=== PATIENT | female | born 1965 | race Caucasian/White ===

== ENCOUNTER 2016-11-11 10:12 | Emergency (ER) | payer MEDICAID ==
[~2016-11-11] VITALS: Wt 95.0 kg
[~2016-11-11 10:12] MED LIST: CEPH-443 PO; IBUP-1542 PO; NAPR-260 PO
[2016-11-11] MEDS ORDERED: IBUP-1542 PO (11:22)
[2016-11-11] MEDS ORDERED: IBUPROFEN 800 MG TAB PO ONE (11:30)
--- NOTE | 2016-11-11 14:54 | ERD ---
ER Documentation Chief Complaint Date/Time DATE: 11/11/16 TIME: 14:53 Chief Complaint low back pain sudden onset non traumatic per pt HPI Patient is a 51-year-old female with hypertension and high cholesterol who presents with back pain. She was lifting something heavy this morning and she had acute onset of back pain. It is in the lower back bilaterally. She had no incontinence. She had no fevers. She has had no treatment as of yet. Upon review of old medical records this is the patient's sixth visit to the ER since September 2015. She does not know the name of her primary doctor. ROS All systems reviewed and are negative except as per history of present illness. Medications Home Meds Active Scripts Ibuprofen* (Motrin*) 600 Mg Tab, 600 MG PO Q6H Y for PAIN AND OR ELEVATED TEMP, #30 TAB Prov:COSTA ENCIOS MD 11/11/16 Cephalexin* (Keflex*) 500 Mg Capsule, 500 MG PO QID for 7 Days, CAP Prov:SHELLIE PARSONS PA-C 05/19/16 Naproxen* (Naprosyn*) 500 Mg Tablet, 500 MG PO BID Y for PAIN AND/OR INFLAMMATION, #30 TAB Prov:MADELIN RODAS PA-C 12/16/15 Ibuprofen* (Motrin*) 600 Mg Tab, 600 MG PO BID for PAIN, #30 TAB 0 Refills Prov:DONALD WYMAN PA-C 10/04/15 Allergies Allergies: Coded Allergies: No Known Allergy (Unverified , 10/04/15) PMhx/Soc Hx Cardiac Disorders: Yes (HTN, HYPERLIPDEMIA ) Hx Miscellaneous Medical Probl: Yes (HYPERTHYROID , ) Hx Alcohol Use: No Hx Substance Use: No Hx Tobacco Use: No FmHx Family History: No diabetes Physical Exam Vitals Vital Signs Date Time Temp Pulse Resp B/P Pulse Ox O2 Delivery O2 Flow Rate FiO2 11/11/16 10:21 98.4 72 20 140/82 98 Physical Exam Const: No acute distress Head: Atraumatic Eyes: Normal Conjunctiva ENT: Normal External Ears, Nose and Mouth. Neck: Full range of motion..~ No meningismus. Resp: Clear to auscultation bilaterally Cardio: Regular rate and rhythm, no murmurs Abd: Soft, non tender, non distended. Normal bowel sounds Skin: No petechiae or rashes Back: No midline or flank tenderness, lower back pain bilateral Ext: No cyanosis, or edema Neur: Awake and alert, strength intact, gait normal Psych: Normal Mood and Affect Results 24 hrs Current Medications Medications (Trade) Dose Ordered Sig/Rickey Route PRN Reason Start Time Stop Time Status Last Admin Dose Admin Ibuprofen (Motrin) 800 mg ONCE ONCE PO 11/11/16 11:30 11/11/16 11:31 DC 11/11/16 11:23 Procedures/MDM Patient is a 51-year-old female with hypertension who presents with lower back pain bilaterally. The patient was given ibuprofen for pain. At this point I doubt epidural abscess, epidural hematoma, or cauda equina syndrome. I believe outpatient management is appropriate. The patient will need to follow-up closely with the primary doctor within 24-48 hours for reevaluation. I do not believe she requires imaging studies at this time. Departure Diagnosis: Primary Impression: Back pain Condition: Fair Patient Instructions: Back Pain (Acute Or Chronic) Referrals: Your doctor Additional Instructions: Llame al doctor MAGAL y arjun snehal JANICE PARA DENTRO DE 1-2 MITCHELL.Dgale a la secretaria que nosotros le instruimos hacer esta janice.Avise o llame si lewis condicin se empeora antes de la janice. Regresa aqui si peor o no mejor. COSTA ENCISO MD Nov 11, 2016 14:54
== END 2016-11-11 11:34 | disposition home or self-care (01) ==
LOC: FTE 10:12
DX: S39.92XA Unspecified injury of lower back, initial encounter (principal); I10 Essential (primary) hypertension; X50.0XXA Overexertion from strenuous movement or load, initial encounter; Y92.9 Unspecified place or not applicable
CPT/HCPCS: Z7502; Z7610; 99283

== ENCOUNTER 2017-02-13 14:58 | Emergency (ER) | payer MEDICAID ==
[~2017-02-13] VITALS: Ht 165.1 cm; Wt 80.5 kg
[2017-02-13 15:17] VITALS: Ht 165.1 cm; Wt 80.5 kg
[2017-02-13] MEDS ORDERED: KETOROLAC 60 MG INJ IM STA (16:26)
--- NOTE | 2017-02-13 17:19 | ERD ---
ER Documentation Chief Complaint Date/Time DATE: 02/13/17 TIME: 17:15 Chief Complaint SHOULDER PAIN TO NECK SINCE YESTERDAY WORSE TODAY. HPI 51-year-old female patient with a past medical history of hypertension, hyperlipidemia, hypothyroidism, anemia presents to the ED complaining of right shoulder, right upper chest and neck pain and she was trying to bring down a 40 pound pot on the shelf in the kitchen. States that she heard a pop in her right shoulder 1 week ago but started to experience pain yesterday. States that she has been taking Motrin without relief of her symptoms. Denies any fever, chills, loss of sensation, loss of range of motion, abdominal pain, nausea, vomiting. ROS All systems reviewed and are negative except as per history of present illness. Medications Home Meds Active Scripts Ibuprofen* (Motrin*) 600 Mg Tab, 600 MG PO Q6, #30 TAB Prov:TIFFANY CHIANG PA-C 02/13/17 Ibuprofen* (Motrin*) 600 Mg Tab, 600 MG PO Q6H Y for PAIN AND OR ELEVATED TEMP, #30 TAB Prov:COSTA ENCISO MD 11/11/16 Cephalexin* (Keflex*) 500 Mg Capsule, 500 MG PO QID for 7 Days, CAP Prov:SHELLIE PARSONS PA-C 05/19/16 Naproxen* (Naprosyn*) 500 Mg Tablet, 500 MG PO BID Y for PAIN AND/OR INFLAMMATION, #30 TAB Prov:MADELIN RODAS PA-C 12/16/15 Ibuprofen* (Motrin*) 600 Mg Tab, 600 MG PO BID for PAIN, #30 TAB 0 Refills Prov:DONALD WYMAN PA-C 10/04/15 Allergies Allergies: Coded Allergies: No Known Allergy (Unverified , 02/13/17) PMhx/Soc Anesthesia Reaction: No Hx Neurological Disorder: No Hx Respiratory Disorders: No Hx Cardiac Disorders: Yes (HTN, HYPERLIPDEMIA) Hx Psychiatric Problems: No Hx Miscellaneous Medical Probl: Yes (HYPERTHYROID , ) Hx Alcohol Use: No Hx Substance Use: No Hx Tobacco Use: No Physical Exam Vitals Vital Signs Date Time Temp Pulse Resp B/P Pulse Ox O2 Delivery O2 Flow Rate FiO2 02/13/17 18:54 97.9 85 18 142/75 100 Room Air 02/13/17 15:17 97.7 82 18 139/73 100 Physical Exam Const: [id number], well-nourished. In no acute distress. Head: Atraumatic, normocephalic Eyes: Normal Conjunctiva without injection ENT: Normal external ear, nose and mouth. Neck: Slight cervical midline tenderness. Full range of motion. No meningismus. Resp: Clear to auscultation bilaterally. No wheezing, rhonchi, rales, or crackles. No accessory muscle use. No retractions. Cardio: Regular rate and rhythm, no murmurs Chest: Tenderness to palpation of upper right chest region near shoulder. Pain is reproducible. Skin: No petechiae or rashes Back: No midline tenderness. No CVA tenderness. Ext: No cyanosis, or edema. Cap refill less than 2 seconds. Distal pulses intact bilaterally. Tenderness to palpation of the right anterior humerus. Full range of motion of the bilateral shoulders, elbows, wrists and hands. Full range of motion of bilateral shoulders with internal rotation, external rotation, flexion, extension. No erythema, edema, warmth to touch. Neur: Awake and alert. Normal gait and coordination. Muscle strength 5/5. Sensation intact bilaterally. Psych: Normal Mood and Affect Results 24 hrs Current Medications Medications (Trade) Dose Ordered Sig/Rickey Route PRN Reason Start Time Stop Time Status Last Admin Dose Admin Ketorolac Tromethamine (Toradol) 60 mg ONCE STAT IM 02/13/17 16:26 02/13/17 16:29 DC 02/13/17 16:35 Procedures/MDM This is a 51-year-old female patient with no significant past medical history presents to the ED complaining of right shoulder, neck, upper right chest pain that started yesterday due to heavy lifting 1 week ago. Patient is afebrile and nontoxic-appearing. Patient has normal vital signs. A right shoulder, chest x-ray, neck x-ray was ordered to further evaluate patient. Patient was treated here in the ED with 60 mg IM Toradol with improvement of her pain. PROCEDURE: XR Cervical Spine. CLINICAL INDICATION: Neck pain TECHNIQUE: AP, cross-table lateral, and odontoid views of the cervical spine were obtained. COMPARISON: None available FINDINGS: The examination is limited the lateral exposure visualizes the vertebral bodies only to the mid C6 level. Mineralization is within normal limits. No fracture or osseous lesion is identified. Vertebral bodies are normal in height. Cervical lordosis is straightened. No vertebral subluxation is seen. Intervertebral discs are normal in height. Facet joints appear maintained. Prevertebral soft tissues, predental space and atlantoaxial joint are unremarkable. RPTAT:HJJR IMPRESSION: 1. Limited cross-table lateral view visualizing the vertebral bodies only to the mid C6 level. 2. Straightening of the normal lordosis may be from positioning but cannot exclude muscle spasm. 3. No obvious fracture subluxation is demonstrated. PROCEDURE: XR Chest. CLINICAL INDICATION: Chest pain. TECHNIQUE: Portable AP view of the chest was obtained. COMPARISON: None. FINDINGS: The cardiomediastinal silhouette is within normal limits. The lungs are clear. There is no evidence for pleural effusion, pneumothorax or pulmonary vascular congestion. The osseous structures are intact with no evidence for acute abnormality. RPTAT:HJJR IMPRESSION: No evidence for acute intrathoracic pathology. PROCEDURE: XR shoulder. CLINICAL INDICATION: Pain TECHNIQUE: Three views of the right shoulder were performed. COMPARISON: None available. FINDINGS: There is normal mineralization and alignment. No fracture or osseous lesion is identified. The joint spaces are preserved. The soft tissues are unremarkable. RPTAT:HJJR IMPRESSION: Unremarkable right shoulder series. Patient is neurovascularly intact. Patient's extremity symptoms have stabilized while they have been evaluated in the department and are appropriate for outpatient follow up. No evidence of fractures, dislocations, compartment syndrome, neurologic injury, vascular injury, open joint, open fracture, tendon laceration, septic arthritis, osteomyelitis, DVT, foreign body, or other emergent conditions. Discharge medications: Ibuprofen Follow up with primary care physician in 1-2 days. Instructed patient to return to the ED sooner for any worsening symptoms. Patient's questions were answered. Patient understood and agreed with discharge plan. Patient discharged stable. Departure Diagnosis: Primary Impression: Shoulder pain Laterality: right Chronicity: unspecified Qualified Code: M25.511 - Right shoulder pain, unspecified chronicity Additional Impressions: Musculoskeletal pain Neck pain Condition: Stable Patient Instructions: Your Neck Muscles, Neck Sprain/Strain, Shoulder Sprain , Muscle Strain, Extremity Referrals: [facility] Usted se lopez hecho un examen mdico de control que le indica que no est en snehal condicin que requiera tratamiento urgente en el Departamento de Emergencia. Un estudio ms profundo y el tratamiento de lewis condicin pueden esperar sin ningn riesgo hasta que usted sea atendida/o en el consultorio de lewis mdico o snehal cl johana. Es responsabilidad suya arreglar snehal janice para el seguimiento del shaka. MANEJO DE CONDICIONES NO URGENTES EN EL FUTURO 1) Si usted tiene un mdico de atencin primaria: Usted debera llamar a lewis mdico de atencin primaria antes de venir al departamento de emergencia. Despus de las horas de consultorio, lewis doctor o lewis asociado/a est disponible por telfono. El mdico o enfermero de girish en el servicio telefnico puede asesorarle por radha medio para atender el problema, o shaka contrario se puede programar snehal janice. 2) Si usted no tiene un mdico de atencin primaria: Llame al mdico o clnica de referencia que aparece abajo harmeet las horas de consultorio para hacer snehal janice para que le vean. CLINICAS: [facility] [phone] [facility] [facility] [phone] [facility] [facility] [phone] [address] [facility]. [facility] [phone] [address] [facility]. [place] [id number] [phone] [facility]. [phone] [facility] () Usted se lopez hecho un examen mdico de control que le indica que no est en snehal condicin que requiera tratamiento urgente en el Departamento de Emergencia. Un estudio ms profundo y el tratamiento de lewis condicin pueden esperar sin ningn riesgo hasta que usted sea atendida/o en el consultorio de lewis mdico o snehal cl johana. Es responsabilidad suya arreglar snehal janice para el seguimiento del shaka. MANEJO DE CONDICIONES NO URGENTES EN EL FUTURO 1) Si usted tiene un mdico de atencin primaria: Usted debera llamar a lewis mdico de atencin primaria antes de venir al departamento de emergencia. Despus de las horas de consultorio, lewis doctor o lewis asociado/a est disponible por telfono. El mdico o enfermero de girish en el servicio telefnico puede asesorarle por radha medio para atender el problema, o shaka contrario se puede programar snehal janice. 2) Si usted no tiene un mdico de atencin primaria: Llame al mdico o condado institucions de referencia que aparece abajo harmeet las horas de consultorio para hacer snehal janice para que le vean. SI USTED NO PUEDE PAGAR PARA EUGENE UN MEDICO puede ir a: [facility] [address] [place] [address] [facility] [address] [place] [address] [facility] [address] [place] [address] [facility] [address] [place] [address] [facility] Additional Instructions: Llame al doctor MAANA y arjun snehal JANICE PARA DENTRO DE 2-3 MITCHELL.Dgale a la secretaria que nosotros le instruimos hacer esta janice.Avise o llame si lewis condicin se empeora antes de la janice. Regresa aqui si peor o no mejor. TIFFANY CHIANG PA-C Feb 13, 2017 17:19
--- NOTE | 2017-02-13 18:03 | RADRPT ---
PROCEDURE: XR Cervical Spine. CLINICAL INDICATION: Neck pain TECHNIQUE: AP, cross-table lateral, and odontoid views of the cervical spine were obtained. COMPARISON: None available FINDINGS: The examination is limited the lateral exposure visualizes the vertebral bodies only to the mid C6 l evel. Mineralization is within normal limits. No fracture or osseous lesion is identified. Verteb ral bodies are normal in height. Cervical lordosis is straightened. No vertebral subluxation is se en. Intervertebral discs are normal in height. Facet joints appear maintained. Prevertebral soft tissues, predental space and atlantoaxial joint are unremarkable. RPTAT:HJJR IMPRESSION: 1. Limited cross-table lateral view visualizing the vertebral bodies only to the mid C6 level. 2. Straightening of the normal lordosis may be from positioning but cannot exclude muscle spasm. 3. No obvious fracture subluxation is demonstrated. Physician Miko Date Time Electronically viewed and signed by Physician Miko on 02/13/2017 18:02 /
--- NOTE | 2017-02-13 18:03 | RADRPT ---
PROCEDURE: XR shoulder. CLINICAL INDICATION: Pain TECHNIQUE: Three views of the right shoulder were performed. COMPARISON: None available. FINDINGS: There is normal mineralization and alignment. No fracture or osseous lesion is identified. The joint spaces are preserved. The soft tissues are unremarkable. RPTAT:HJJR IMPRESSION: Unremarkable right shoulder series. Physician Miko Date Time Electronically viewed and signed by Raj Newton Physician on 02/13/2017 18:03 JR/
--- NOTE | 2017-02-13 18:04 | RADRPT ---
PROCEDURE: XR Chest. CLINICAL INDICATION: Chest pain. TECHNIQUE: Portable AP view of the chest was obtained. COMPARISON: None. FINDINGS: The cardiomediastinal silhouette is within normal limits. The lungs are clear. There is no evidenc e for pleural effusion, pneumothorax or pulmonary vascular congestion. The osseous structures are i ntact with no evidence for acute abnormality. RPTAT:HJJR IMPRESSION: No evidence for acute intrathoracic pathology. Physician Miko Date Time Electronically viewed and signed by Physician Miko on 02/13/2017 18:03 JR/
[2017-02-13] MEDS ORDERED: IBUP-1542 PO (18:47)
[2017-02-13 18:54] VITALS: BP 142/75; PULSE 85; RESP 18; TEMP 97.9
== END 2017-02-13 18:54 | disposition home or self-care (01) ==
LOC: FTE 14:58
DX: M25.511 Pain in right shoulder (principal); M54.2 Cervicalgia; I10 Essential (primary) hypertension; E03.9 Hypothyroidism, unspecified; Z04.3 Encounter for examination and observation following other accident
CPT/HCPCS: 71010; 72040; 73030; 96372; J1885; Z7502

== ENCOUNTER 2017-08-28 22:14 | Emergency (ER) | END 2017-08-28 22:40 | disposition left against medical advice (07) ==

== ENCOUNTER 2018-02-15 14:37 | Emergency (ER) | END 2018-02-15 19:46 | disposition home or self-care (01) ==

== ENCOUNTER 2018-04-01 20:35 | Emergency (ER) | END 2018-04-01 23:05 | disposition home or self-care (01) ==

== ENCOUNTER 2018-08-27 09:38 | Emergency (ER) | END 2018-08-27 10:41 | disposition home or self-care (01) ==

== ENCOUNTER 2018-10-16 13:20 | Emergency (ER) | END 2018-10-16 16:00 | disposition home or self-care (01) ==

== ENCOUNTER 2018-10-23 11:29 | Emergency (ER) | payer MEDICAID ==
[~2018-10-23] VITALS: Wt 80.5 kg
[~2018-10-23 11:29] MED LIST changes: +ACET500C5 PO; +BENZ-6 PO; +CYCL10TA7 PO; +DICL100G37 TOP; +FAMO-96 PO; +HYDR-4011 PO; +IBUP800T48 PO; +LORA5TAB4 PO; +MED4DP PO; +METH750T93 PO; -NAPR-260 PO; +NAPR-985 PO
[2018-10-23 11:31] VITALS: BP 144/76; PULSE 92; RESP 20
[2018-10-23] MEDS ORDERED: ACETAMINOPHEN 325 MG TAB PO ONE (12:00)
[2018-10-23] MEDS ORDERED: D-ME473S2 PO (12:49)
[2018-10-23] MEDS ORDERED: ACET500C5 PO (12:49)
--- NOTE | 2018-10-23 12:58 | ERD ---
ER Documentation Chief Complaint Chief Complaint cough, congestion, cwp HPI 53-year-old female presents with cough for last 4 days. She may have had fever at home but no fever triage. She denies chest pain, vomiting, abdominal pain. ROS All systems reviewed and are negative except as per history of present illness. Medications Home Meds Active Scripts Acetaminophen* (Tylophen*) 500 Mg Capsule, 1 CAP PO Q6H PRN for PAIN AND OR ELEVATED TEMP, #15 CAP Prov:DEMAR MICHELLE MD 10/23/18 Dextromethorphan Hb-Promethazine Hcl* (Promethazine DM* Syrup) 473 Ml Syrup, 5 ML PO Q6 PRN for COUGH for 5 Days, ML Prov:DEMAR MICHELLE MD 10/23/18 Methocarbamol* (Robaxin*) 750 Mg Tablet, 750 MG PO TID for back pain, #30 TAB Prov:DELFINA VAZQUEZ DO 10/16/18 Ibuprofen* (Motrin*) 600 Mg Tab, 600 MG PO Q6H PRN for PAIN AND OR ELEVATED TEMP, #30 TAB Prov:DELFINA VAZQUEZ DO 10/16/18 Cyclobenzaprine Hcl* (Cyclobenzaprine Hcl*) 10 Mg Tablet, 10 MG PO TID, #6 TAB Prov:GRISELDA HARDING PA-C 08/27/18 Methylprednisolone* (Medrol* DOSE PACK) 4 Mg/Dose-Pack Tab.ds.pk, 4 MG PO . DIRECTED for 5 Days, PACKET Prov:GRISELDA HARDING PA-C 08/27/18 Diclofenac Sodium* (Voltaren* Gel) 1% -100 Gm Gel, 2 GM TOP QID, #1 TUB Prov:GRISELDA HARDING PA-C 08/27/18 Acetaminophen* (Tylophen*) 500 Mg Capsule, 1 CAP PO Q6H PRN for PAIN AND OR ELEVATED TEMP, #20 CAP Prov:GRISELDA HARDING PA-C 08/27/18 Hydrocodone/Acetaminophen (Solon 5-325 Tablet) 1 Each Tablet, 1 TAB PO Q6H PRN for PAIN, #20 TAB Prov:SUNDAR TELLES PA-C 04/01/18 Ibuprofen* (Motrin*) 800 Mg Tab, 800 MG PO Q6, #30 TAB Prov:SUNDAR TELLES PA-C 04/01/18 Hydrocodone/Acetaminophen (Solon 5-325 Tablet) 1 Each Tablet, 1 TAB PO Q8 PRN for PAIN, #7 TAB Prov:BUZZ,MARY 02/15/18 Famotidine* (Pepcid*) 20 Mg Tablet, 20 MG PO BID for 10 Days, #20 TAB Prov:BUZZ,MARY 02/15/18 Naproxen* (Naprosyn*) 500 Mg Tablet, 500 MG PO BID PRN for PAIN AND/OR INFLAMMATION for 10 Days, #20 TAB Prov:BUZZ,MARY 02/15/18 Methylprednisolone* (Medrol* DOSE PACK) 4 Mg/Dose-Pack Tab.ds.pk, 4 MG PO . DIRECTED for 7 Days, PACKET Prov:BUZZ,MARY 02/15/18 Naproxen* (Naprosyn*) 500 Mg Tablet, 500 MG PO BID PRN for PAIN AND/OR INFLAMMATION, #30 TAB Prov:GARRET SMITH-C 06/05/17 Loratadine* (Claritin*) 5 Mg Tab.rapdis, 5 MG PO DAILY, #30 TAB Prov:GARRET SMITH-C 06/05/17 Benzonatate* (Tessalon Perle*) 100 Mg Capsule, 100 MG PO Q8H PRN for COUGH for 14 Days, CAP Prov:GARRET SMITH-C 06/05/17 Acetaminophen* (Tylophen*) 500 Mg Capsule, 1 CAP PO Q6H PRN for PAIN AND OR ELEVATED TEMP, #20 CAP Prov:GARRET SMITH-C 06/05/17 Ibuprofen* (Motrin*) 600 Mg Tab, 600 MG PO Q6, #30 TAB Prov:TIFFANY CHIANGC 02/13/17 Ibuprofen* (Motrin*) 600 Mg Tab, 600 MG PO Q6H PRN for PAIN AND OR ELEVATED TEMP, #30 TAB Prov:COSTA ENCISO MD 11/11/16 Cephalexin* (Keflex*) 500 Mg Capsule, 500 MG PO QID for 7 Days, CAP Prov:SHELLIE PARSONS-C 05/19/16 Naproxen* (Naprosyn*) 500 Mg Tablet, 500 MG PO BID PRN for PAIN AND/OR INFLAMMATION, #30 TAB Prov:MADELIN RODAS PA-C 12/16/15 Ibuprofen* (Motrin*) 600 Mg Tab, 600 MG PO BID for PAIN, #30 TAB 0 Refills Prov:DONALD WYMAN PA-C 10/04/15 Allergies Allergies: Coded Allergies: No Known Allergy (Unverified , 10/23/18) PMhx/Soc Anesthesia Reaction: No Hx Neurological Disorder: No Hx Respiratory Disorders: No Hx Cardiac Disorders: Yes (HTN, HYPERLIPDEMIA) Hx Psychiatric Problems: No Hx Miscellaneous Medical Probl: Yes (HYPERTHYROID , ) Hx Alcohol Use: No Hx Substance Use: No Hx Tobacco Use: No Smoking Status: Never smoker FmHx Family History: No diabetes, No coronary disease, No other Physical Exam Vitals Vital Signs Date Temp Pulse Resp B/P (MAP) Pulse Ox O2 O2 Flow FiO2 Time Delivery Rate 10/23/18 98.6 92 20 144/76 99 11:31 (98) Physical Exam Const: No acute distress Head: Atraumatic Eyes: Normal Conjunctiva ENT: Normal External Ears, Nose and Mouth. TMs and oropharynx normal. Neck: Full range of motion. No meningismus. Resp: Clear to auscultation bilaterally. Coarse cough without rales, wheezing or retractions per Cardio: Regular rate and rhythm, no murmurs Abd: Soft, non tender, non distended. Normal bowel sounds Skin: No petechiae or rashes Back: No midline or flank tenderness Ext: No cyanosis, or edema Neur: Awake and alert Psych: Normal Mood and Affect Results 24 hrs Current Medications Medications Dose Sig/Rickey Start Time Status Last (Trade) Ordered Route PRN Stop Time Admin Dose Reason Admin 650 mg ONCE ONCE 10/23/18 DC 10/23/18 Acetaminophen PO 12:00 10/23/18 11:49 (Tylenol 12:01 Tab) Procedures/MDM Chest X-ray 1V Interpreted by me: Soft Tissue: No acute abnormalities Bones: No acute abnormalities Mediastinum/Cardiac Silhouette/Lungs: No acute abnormalities. Impression- normal 1 view chest x-ray Presents with URI symptoms last 4 days. She has no signs of pneumonia, hypoxemia, rest distress and no signs of cardiac chest pain, abdominal pain. She will treated with promethazine, Tylenol, primary care follow-up and return precautions. The patient was stable with no new complaints during the ER course. Clinically, there is no current evidence to suggest meningitis, sepsis, acute abdomen, pneumonia, stroke, acute coronary syndrome, pulmonary embolism, aortic dissection or any other emergent condition appearing to require further evaluation or hospitalization. Patient counseled regarding my diagnostic impression and care plan. Prior to discharge all questions answered. Pt agrees with treatment plan and understands strict return precautions. Pt is instructed to follow up with primary care provider within 24-48 hours. Precautionary instructions provided including instructions to return to the ER if not improvi ng or for any worsening or changing symptoms or concerns. Departure Diagnosis: Primary Impression: Cough Condition: Stable Patient Instructions: Uri, Viral, No Abx (Adult) Additional Instructions: X-ray normal. Probablamente un virus que dura 2-4 rodgers. cheque otro vez en el proximo bayron para mas simptomas- vomito, dolor, kalina, problemas con respirando, o con lewis doctor primario. DEMAR MICHELLE MD Oct 23, 2018 12:58
== END 2018-10-23 13:02 | disposition home or self-care (01) ==
LOC: FTE 11:29
DX: R05 Cough (principal); I10 Essential (primary) hypertension
CPT/HCPCS: 71045; Z7502; Z7610